=== PATIENT | female | born 1965 | race Caucasian/White ===

== ENCOUNTER 2018-10-04 07:44 | Day surgery (SDC) | payer OTHER ==
[2018-10-04] VITALS (9 sets, daily range): BP systolic 94–120; BP diastolic 56–81
[~2018-10-04] VITALS: Ht 170.2 cm; Wt 64.9 kg
[~2018-10-04 07:44] MED LIST: LR 1000ml 1,000 ML IVLG SCH
[2018-10-04] MEDS ORDERED: Propofol 200mg/20ml IV ONE (08:30)
[2018-10-04] MEDS ORDERED: LR 1000ml ONE (08:30)
[2018-10-04] MEDS ORDERED: Lidocaine 1% MPF 10mg/ml 5ml ONE (08:30)
[2018-10-04] MEDS ORDERED: IRON18 M1 PO (08:32)
[2018-10-04] MEDS ORDERED: VYVANSE40 MG ORAL (08:32)
[2018-10-04] MEDS ORDERED: VITAMIN C500 M1 ORAL (08:32)
[2018-10-04] MEDS ORDERED: MILK THISTLE140 M1 PO (08:32)
[2018-10-04] MEDS ORDERED: CAL MAG PO (08:32)
[2018-10-04] MEDS ORDERED: VITAMIN B122500 MCG PO (08:32)
--- NOTE | 2018-10-04 08:58 | Short Stay Surgery H&P ---
History of Present Illness History of Present Illness Chief Complaint see H&P HPI Cally Zepeda is a 52 year old female who was admitted on for Anemia Patient History Allergies: Coded Allergies: No Known Allergies (Unverified , 10/04/18) Medication History Scheduled Ascorbic Acid* (Vitamin C*), 1,000 MG ORAL QID, (Reported) Cyanocobalamin (Vitamin B-12) (Vitamin B12), 1,000 MCG PO DAILY, (Reported) Iron (Iron), 25 MG PO DAILY, (Reported) Lisdexamfetamine Dimesylate (Vyvanse), 40 MG ORAL DAILY, (Reported) Milk Thistle Seed Extract (Milk Thistle), Unknown Dose PO DAILY, (Reported) [Jesse Mag], 2 TAB PO DAILY, (Reported) Physical Exam Vital Signs Last Vital Signs Date Time Temp Pulse Resp B/P (MAP) Pulse Ox O2 Delivery O2 Flow Rate FiO2 10/04/18 08:26 Room Air 10/04/18 08:20 97.0 51 18 115/70 98 Labs Laboratory Tests Test 10/04/18 08:02 Urine HCG, Qualitative Negative (NEGATIVE) Plan Attestation Are the patient's medical conditions optimized for surgery? Liam Treviño MD Oct 04, 2018 08:58
--- NOTE | 2018-10-04 08:59 | Pre-Procedure Note/Attestation ---
Pre-Procedure Note/Attestation Complete Prior to Procedure Planned Procedure: not applicable Procedure Narrative: EGD colon Indications for Procedure Pre-Operative Diagnosis: anemia Attestation I attest that I discussed the nature of the procedure; its benefits; risks and complications; and alternatives (and the risks and benefits of such alternatives ), prior to the procedure, with the patient (or the patient's legal entry level account representative). I attest that, if there was a reasonable possibility of needing a blood transfusion, the patient (or the patient's legal entry level account representative) was given the [facility] standardized written summary, pursuant to the [place] Blood Safety Act ([place] Health and Safety Code # 1645, as amended). I attest that I re-evaluated the patient just prior to the surgery and that there has been no change in the patient's H&P, except as documented below: Liam Treviño MD Oct 04, 2018 08:59
[2018-10-04] MEDS ORDERED: LR 1000ml 1,000 ML IVLG SCH (09:25)
[2018-10-04] MEDS ORDERED: fentaNYL 100 mcg/2 mL IV PRN (09:30)
[2018-10-04] MEDS ORDERED: DiphenhydrAMINE 50mg/ml Inj IVP PRN (09:30)
[2018-10-04] MEDS ORDERED: Atropine Inj 1mg/10ml Syr IV PRN (09:30)
[2018-10-04] MEDS ORDERED: Midazolam 2mg/2ml Inj IVP PRN (09:30)
--- NOTE | 2018-10-04 09:36 | Anethesia Preoperative Eval ---
Anesthesia Pre-op PMH/ROS General Date of Evaluation: Oct 04, 2018 Time of Evaluation: 08:30 Anesthesiologist: lindsey ASA Score: ASA 2 Mallampati Score Class I : Soft palate, uvula, fauces, pillars visible Class II: Soft palate, uvula, fauces visible Class III: Soft palate, base of uvula visible Class IV: Only hard plate visible Mallampati Classification: Class II Surgeon: nayeli Diagnosis: anemia Surgical Procedure: egd/colonoscopy Anesthesia History: none Social History: smoking - former smoker Family History: no anesthesia problems Allergies: Coded Allergies: No Known Allergies (Unverified , 10/04/18) Medications: see eMAR Patient NPO?: Yes Past Medical History Neurologic/Psychiatric: Reports: other - adhd PSxH Narrative: cervical fusion, uterine ablation Anesthesia Pre-op Phys. Exam Physician Exam Last Vital Signs Date Time Temp Pulse Resp B/P (MAP) Pulse Ox O2 Delivery O2 Flow Rate FiO2 10/04/18 08:26 Room Air 10/04/18 08:20 97.0 51 18 115/70 98 Constitutional: NAD Neurologic: CN 2-12 intact Cardiovascular: RRR Respiratory: CTA Gastrointestinal: S/NT/ND Airway Exam Mallampati Score: Class II MO: full Neck: decreased rom TMD: 2fb ROM: full Anesthesia Pre-op A/P Labs Urine Test Test 10/04/18 08:02 Urine HCG, Qualitative Negative (NEGATIVE) Risk Assessment & Plan Assessment: asa2 Plan: mac Status Change Before Surgery: No Pre-Antibiotics Drug: Leah Blue MD Oct 04, 2018 09:36
--- NOTE | 2018-10-04 09:54 | Endoscopy Procedure Note ---
Endoscopy Procedure Note General Indication for Procedure: anemia Procedures Performed: EGD, colonoscopy Operative Findings/Diagnosis: linear prox gastric eryth, 2 cm HH, faint TI eryhema Specimen: yes Pt Tolerated Procedure Well: Yes Estimated Blood Loss: none Anesthesia Anesthesiologist: Juvencio Maloney Anesthesia: MAC Medications Medication Given: see anesthesia record Inserted Devices Implant(s) used?: No Quality Quality of Bowel Preparation: Excellent GI Core Measures 50 yrs or older w/o bx or poly: Not Applicable 10yrs. F/U recommended: Not Applicable If not recommended, why?: Liam Treviño MD Oct 04, 2018 09:54
--- NOTE | 2018-10-04 09:56 | Brief Operative Note ---
Immediate Post Operative Note Operative Note Chief Complaint: anemia Pre-op Diagnosis: anemia Procedure: EGD/bx, colon Bx Post-op Diagnosis: Mild proximal linear nn erosive gastritis, HH, faint TI erythema Surgeon: nayeli Anesthesiologist: Juvencio Maloney Anesthesia: MAC Specimen: yes Complications: none Condition: stable Fluids: recorded Estimated Blood Loss: none Drains: none Implant(s) used?: No Liam Treviño MD Oct 04, 2018 09:56
--- NOTE | 2018-10-04 10:45 | Procedure Note ---
DATE OF PROCEDURE: 10/04/2018 GASTROENTEROLOGY PROCEDURE REPORT PROCEDURE: Upper gastrointestinal endoscopy with biopsy as well as colonoscopy with biopsy. SURGEON: Liam Treviño M.D. ANESTHESIA: Please see the separate anesthesiologist notes for details. PRE-ENDOSCOPIC DIAGNOSES: 1. Anemia. 2. History of abdominal pain. POST-ENDOSCOPIC DIAGNOSES: 1. A 2 cm incidental hiatal hernia. 2. Mild proximal nonerosive linear gastritis, status post biopsy of the fundus. 3. Status post random biopsies of the antrum and duodenum. 4. Faint erythema in the terminal ileum, examined to about 20 cm of unclear significance, status post biopsy. 5. Status post random biopsies of normal rectosigmoid area. PROCEDURE: The procedure risks were explained and informed consent was obtained. The diagnostic upper endoscope was advance through the mouth into duodenum. The endoscope was gradually withdrawn and mucosa were examined carefully. A rectal exam was then done and the colonoscope was introduced into the rectum and advanced 20 cm into the terminal ileum. Advancement was a bit challenging due to frequent looping of the scope. Findings on upper and lower gastrointestinal endoscopy are listed above. Biopsies obtained as stated above. Patient sent to recovery in good condition. RECOMMENDATIONS: 1. Follow up biopsy results. 2. Check and treat Helicobacter pylori if positive. 3. Outpatient followup. Liam Treviño M.D. DR: JANIE JOB#: [id number] CC: SAMI
--- NOTE | 2018-10-04 12:28 | Immediate Post-Op Evaluation ---
Immediate Post-Op Evalulation Immediate Post-Op Evalulation Procedure: egd/colonoscopy w/bx Date of Evaluation: Oct 04, 2018 Time of Evaluation: 10:06 IV Fluids: 500ml lr Blood Products: none Estimated Blood Loss: negligible Blood Pressure Systolic: 94 Blood Pressure Diastolic: 56 Pulse Rate: 65 Respiratory Rate: 18 O2 Sat by Pulse Oximetry: 100 Temperature (Fahrenheit): 97.2 Pain Score (1-10): 0 Nausea: No Vomiting: No Complications none Patient Status: awake, reacts, patent Hydration Status: adequate Drug: Leah Blue MD Oct 04, 2018 12:28
--- NOTE | 2018-10-04 12:30 | 48 Hour Post Anesthesia Eval ---
Post Anesthesia Evaluation Procedure: egd/colonoscopy w/bx Date of Evaluation: Oct 04, 2018 Time of Evaluation: 10:08 Blood Pressure Systolic: 115 0: 81 Pulse Rate: 58 Respiratory Rate: 18 Temperature (Fahrenheit): 97.2 O2 Sat by Pulse Oximetry: 100 Airway: patent Nausea: No Vomiting: No Pain Intensity: 0 Hydration Status: adequate Cardiopulmonary Status: stable Mental Status/LOC: patient returned to baseline Post-Anesthesia Complications: none Follow-up care needed: N/A Leah Sanchez MD Oct 04, 2018 12:30
== END 2018-10-04 11:20 | disposition home or self-care (01) ==
LOC: GAS 07:44
DX: D64.9 Anemia, unspecified (principal); K44.9 Diaphragmatic hernia without obstruction or gangrene; K29.50 Unspecified chronic gastritis without bleeding; Z79.899 Other long term (current) drug therapy
CPT/HCPCS: 43239; 45380; 81025; J2704; 94003; 94150